=== PATIENT | male | born 1965 | race Caucasian/White ===

== ENCOUNTER → 2017-09-19 | Day surgery (SDC) | payer OTHER ==
[2017-09-06 13:08] VITALS: Ht 170.2 cm; Wt 73.6 kg
[~2017-09-19] VITALS: Ht 170.2 cm; Wt 73.6 kg
[~2017-09-19] MED LIST: CETI10TA84 PO; LIDOCAINE HCL 2% 2 ML VIAL (20MG/ML) ONE; PROPOFOL IV EMULSION 10 MG/ML 20 ML VIAL IV ONE; SODIUM CHLORIDE 0.9% 500ML 500 ML IV ONE; SUMA25TA PO
--- NOTE | 2017-09-19 14:27 | Endo History and Physical ---
History & Physical Date of Service: Sep 19, 2017. Chief Complaint: screeing Referring Physician: Dr. Bob JASSO History of Present Illness 52 yo CM who presents for screening colonoscopy. Past Surgical History Hx Cardiac Surgery: No Hx Internal Defibrillator: No Hx Pacemaker: No Hx Abdominal Surgery: No Hx of Implantable Prosthesis: No Hx Post-Op Nausea and Vomiting: No Hx Cancer Surgery: No Hx Thoracic Surgery: No Hx Orthopedic: Yes ("LASER LUMBAR SURGERY") Hx Urinary Tract Surgery: No Family History Esophogeal CA Social History Smoking Status: Never Smoker Hx Substance Use: No Hx Alcohol Use: Yes (OCCASIONALLY) Allergies Coded Allergies: Penicillins (Verified Allergy, Unknown, CONFIRMED BY ALLERGY TEST, 09/06/17 ) Current Medications Reported Home Medications Medications Dose Route/Sig Max Daily Dose Days Date Category Imitrex (Sumatriptan Succinate) 25 Mg Tab 25 Mg PO PRN PRN 09/06/17 Reported Zyrtec (Cetirizine HCl) 10 Mg Tab 10 Mg PO DAILY PRN 09/06/17 Reported Vital Signs Weight (Kilograms): 73.64 Height (Feet): 5 Height (Inches): 7 Date Time Temp Pulse Resp B/P (MAP) Pulse Ox O2 Delivery O2 Flow Rate FiO2 09/19/17 14:13 36.5 77 16 122/81 (95) 96 Room Air Physical Exam General Appearance: WD/WN, no apparent distress Respiratory/Chest: Auscultation: breath sounds normal Cardiovascular: Heart Auscultation: RRR Abdomen: Bowel Sounds: normal Inspection & Palpation: soft, non-distended, no tenderness, guarding & rebound Assessment and Plan Assessment: 52 yo CM who presents for screening colonoscopy. Plan: Proceed with colonoscopy.
--- NOTE | 2017-09-19 14:52 | Discharge Instructions ---
Endoscopy Patient Instructions Date / Procedure(s) Performed Sep 19, 2017. Colonoscopy Allergy Information Coded Allergies: Penicillins (Verified Allergy, Unknown, CONFIRMED BY ALLERGY TEST, 09/06/17 ) Discharge Date / Findings Sep 19, 2017. Colon polyp Internal hemorrhoids Medication Instructions OK to resume all medications today as prescribed Reported Home Medications Medications Dose Route/Sig Max Daily Dose Days Date Category Imitrex (Sumatriptan Succinate) 25 Mg Tab 25 Mg PO PRN PRN 09/06/17 Reported Zyrtec (Cetirizine HCl) 10 Mg Tab 10 Mg PO DAILY PRN 09/06/17 Reported Provider Instructions Activity Restrictions - No exercising or heavy lifting for 24 hours. - Do not drink alcohol the day of the procedure. - Do not drive a car or operate machinery until the day after the procedure. - Do not make any important decisions or sign important papers in 24 hours after the procedure. Following Day: - Return to full activity which may include returning to work/school. Diet Start your diet with liquids and light foods (jello, soup, juice, toast). Then eat your usual diet if not nauseated. Treatment For Common After Affects For mild abdominal pain, bloating, or excessive gas: - Rest - Eat lightly - Lie on right side Follow-Up Information Follow-up with Dr. Bob JASSO as scheduled Anesthesia Information What You Should Know You have had a procedure that required some medicine to reduce anxiety and discomfort. This treatment is called moderate sedation. After receiving the treatment, you may be sleepy, but you will be able to breathe on your own. The effects of the treatment may last for several hours. Follow these instructions along with Activity/Diet recommendations noted above: * Do NOT do anything where dizziness or clumsiness would be dangerous. * Rest quietly at home today, then you can be up and about tomorrow. * Have a responsible person stay with you the rest of today. * You may have had an I.V. today. If so, you may take the dressing off later today. Recommendations Call your doctor if: * Trouble breathing * Continuous vomiting for more than 24 hours * Temperature above 101 degrees * Severe abdominal pain or bloating * Pain not relieved by pain medicine ordered * There is increased drainage or redness from any incision * A large amount of rectal bleeding greater than 2-3 tablespoons. (If you had a polyp/s removed or have hemorrhoids, a small amount of blood - from the rectum is to be expected.) * You have any unanswered questions or concerns. IN THE EVENT OF A SERIOUS EMERGENCY, GO TO THE NEAREST EMERGENCY ROOM Your discharge instructions were prepared by provider Power Ramírez. Patient Instructions Signature Page Aj Austin Patient (or Guardian) Signature/Date: I have read and understand the instructions given to me by my caregivers. Caregiver/RN/Doctor Signature/Date: The above-named patient and/or guardian has received patient instructions on this date. + Original Patient Signature Page (only) stays with chart. Please make copy for patient.
--- NOTE | 2017-09-19 14:59 | GI REPORT ---
Procedure Date: 09/19/2017 2:12 PM Procedure: Colonoscopy Indications: Screening for colorectal malignant neoplasm Medicines: Monitored Anesthesia Care Complications: No immediate complications. Estimated Blood Loss: Estimated blood loss: none. Procedure: Pre-Anesthesia Assessment: - Prior to the procedure, a History and Physical was performed, and patient medications and allergies were reviewed. The patient's tolerance of previous anesthesia was also reviewed. The risks and benefits of the procedure and the sedation options and risks were discussed with the patient. All questions were answered, and informed consent was obtained. Prior Anticoagulants: The patient has taken no previous anticoagulant or antiplatelet agents. ASA Grade Assessment: II - A patient with mild systemic disease. After reviewing the risks and benefits, the patient was deemed in satisfactory condition to undergo the procedure. After I obtained informed consent, the scope was passed under direct vision. Throughout the procedure, the patient's blood pressure, pulse, and oxygen saturations were monitored continuously. The scope was introduced through the anus and advanced to the cecum, identified by appendiceal orifice and ileocecal valve. The colonoscopy was performed without difficulty. The patient tolerated the procedure well. The quality of the bowel preparation was good. The ileocecal valve, appendiceal orifice, and rectum were photographed. Findings: The perianal and digital rectal examinations were normal. A 5 mm polyp was found in the sigmoid colon. The polyp was sessile. The polyp was removed with a hot snare. Resection and retrieval were complete. Non-bleeding internal hemorrhoids were found during retroflexion. The hemorrhoids were small. Impression: - One 5 mm polyp in the sigmoid colon, removed with a hot snare. Resected and retrieved. - Non-bleeding internal hemorrhoids. Recommendation: - Resume previous diet. - Continue present medications. - Repeat colonoscopy for surveillance based on pathology results. - Return to primary care physician as previously scheduled. Power Ramírez, DO 09/19/2017 2:59:18 PM This report has been signed electronically. Note Initiated On: 09/19/2017 2:12 PM I attest to the content of the Intraoperative Record and orders documented therein, exceptions below
--- NOTE | 2017-09-19 15:02 | Anesthesiology Progress Note ---
Anesthesia Post Op Note Date & Time Sep 19, 2017 at 15:02 Vital Signs Pain Intensity: 3 Vital Signs Past 12 Hours Date Time Temp Pulse Resp B/P (MAP) Pulse Ox O2 Delivery O2 Flow Rate FiO2 09/19/17 14:55 80 16 133/87 (102) 96 Room Air 09/19/17 14:13 36.5 77 16 122/81 (95) 96 Room Air Notes Mental Status: alert / awake / arousable, participated in evaluation Pt Amnestic to Procedure: Yes Nausea / Vomiting: adequately controlled Pain: adequately controlled Airway Patency, RR, SpO2: stable & adequate BP & HR: stable & adequate Hydration State: stable & adequate Anesthetic Complications: no major complications apparent
[2017-09-19 15:23] VITALS: BP 129/76; PULSE 74; O2SAT 97
== END | disposition home or self-care (01) ==
LOC: C.GI 13:50
PROVIDERS: ATTEND Internal Medicine
DX: Z12.11 Encounter for screening for malignant neoplasm of colon (principal); K63.5 Polyp of colon; K64.8 Other hemorrhoids

== ENCOUNTER 2018-03-04 15:08 | Inpatient (IN) | payer OTHER ==
[~2018-03-04] VITALS: Ht 170.2 cm; Wt 75.6 kg
[~2018-03-04 15:08] MED LIST changes: -LIDOCAINE HCL 2% 2 ML VIAL (20MG/ML) ONE; -PROPOFOL IV EMULSION 10 MG/ML 20 ML VIAL IV ONE; -SODIUM CHLORIDE 0.9% 500ML 500 ML IV ONE
[2018-03-04] MEDS ORDERED: EpINEphrine INJ 1MG/ML AMP 1 MG/ML AMP ONE (15:34)
[2018-03-04] MEDS ORDERED: METHYLPREDNISOLONE 125 MG VIAL IV STA (15:39)
[2018-03-04] MEDS ORDERED: ONDANSETRON INJ 2 MG/ML 2 ML VIAL IV STA (15:39)
[2018-03-04] MEDS ORDERED: SODIUM CHLORIDE 0.9% 1000ML 1,000 ML IV STA (15:39)
[2018-03-04] MEDS ORDERED: RANITIDINE HCL 50 MG/100 ML D5W IV STA (15:39)
[2018-03-04] MEDS ORDERED: DiphenhydrAMINE HCL 50 MG/ML VIAL IV STA (15:39)
--- NOTE | 2018-03-04 15:50 | EMERGENCY ROOM VISIT NOTE ---
History Report prepared by Kym: Alli Fowler Under the Supervision of: Dr. Long Gutierrez M.D. First contact with patient: 15:28 Chief Complaint: ALLERGIC REACTION Stated Complaint: MIGRAINE, SWELLING FACE, HANDS, FEET History of Present Illness The patient is a 52 year old male who presents to the Emergency Room with complaints of a worsening allergic reaction starting this morning. The patient states that he woke up this morning with swelling to his face, hands, and feet. The patient additionally notes that he has had a left sided migraine since yesterday, and he got nauseous, dizzy, and light headed just recently. He additionally notes that he is a little bit short of breath. The patient states that he take Imitrex for his migraines, though he ran out yesterday, and he states that the pain is on the left side of his head, his migraines occasionally make him nauseous, and he notes that the light usually bothers him though not currently. The patient states that he has never used an Epi Pen before. He reports that he has been to an assistant to the ceo before. Source of History: patient Onset: this moring Position: other (generalized) Quality: other (allerigic reaction) Timing: worsening Associated Symptoms: + headache, + SOB, + nausea Note: Associated symptoms: Facial, hands, and feet swelling. Light headed and dizzy. Review of Systems See HPI for pertinent positives & negatives. A total of 10 systems reviewed and were otherwise negative. Past Medical & Surgical Medical Problems: (1) Anaphylactic reaction Surgical Problems: (1) History of lumbar surgery Social History Smoking Status: Never Smoker Alcohol Use: occasionally Marital Status: single Occupation Status: retired Current/Historical Medications Scheduled PRN Cetirizine (Zyrtec), 10 MG PO DAILY PRN for SWELLING Sumatriptan Succinate (Imitrex), 25 MG PO PRN PRN for Migraine Tramadol (Ultram), 50 MG PO Q8H PRN for Pain Allergies Coded Allergies: Penicillins (Verified Allergy, Unknown, CONFIRMED BY ALLERGY TEST, 03/04/18) Physical Exam Vital Signs Date Time Temp Pulse Resp B/P (MAP) Pulse Ox O2 Delivery O2 Flow Rate FiO2 03/04/18 18:07 79 16 93/67 95 Room Air 03/04/18 17:21 81 20 107/68 95 Room Air 03/04/18 16:29 76 5/7/18 16:00 122/71 03/04/18 15:53 75 18 03/04/18 15:42 97 Room Air 03/04/18 15:38 106/58 03/04/18 15:34 97 Room Air 03/04/18 15:34 97 Room Air 03/04/18 15:30 47 20 88/51 97 Room Air 03/04/18 15:27 46 64/45 97 Room Air 03/04/18 15:17 36.5 75 20 111/72 95 Room Air Physical Exam GENERAL: Patient is in no acute distress. HEENT: No acute trauma, normocephalic atraumatic, mucous membranes moist, no nasal congestion, no scleral icterus. Pupils are equal and reactive to light. No uvular edema. Upper lip edema noted. NECK: No stridor, no adenopathy, no meningismus, trachea is midline. LUNGS: Clear to auscultation bilaterally, no wheeze, no rhonchi, breath sounds equal. HEART: Without murmurs gallops or rubs, regular rate and rhythm. ABDOMEN: Soft, nontender, bowel sounds positive, no hernias, no peritonitis. EXTREMITIES: No cyanosis or edema, full range of motion of all the joints without pain or difficulty, no signs for acute trauma. NEUROLOGIC: Oriented x 3, no acute motor or sensory deficits, no focal weakness. SKIN: No rash, no jaundice, no diaphoresis. Medical Decision & Procedures ER Provider Diagnostic Interpretation: Radiology results as stated below per my review and radiologist interpretation: HEAD WITHOUT CONTRAST (CT) CT DOSE: 614.27 mGy.cm HISTORY: Headache. Mental status change. headache, vomiting, low blood pressure TECHNIQUE: Multiaxial CT images of the head were performed without the use of intravenous contrast. A dose lowering technique was utilized adhering to the principles of ALARA. Comparison: None. Findings: The paranasal sinuses and mastoid air cells are clear. The calvarium and skull base are intact. The ventricles and sulci are within normal limits. There is no mass, hematoma, midline shift, or acute infarct. Impression: No acute intracranial abnormality. The above report was generated using voice recognition software. It may contain grammatical, syntax or spelling errors. Electronically signed by: Sonny Santos M.D. 03/04/2018 4:21 PM Dictated Date/Time: 03/04/2018 4:20 PM CHEST ONE VIEW PORTABLE CLINICAL HISTORY: EVALUATE ALTERED MENTAL STATUS/WEAKNESS dyspnea COMPARISON STUDY: No previous studies for comparison. FINDINGS: The bones soft tissues and hemidiaphragms are normal. The cardiomediastinal silhouette is normal. The lungs are clear. The pulmonary vasculature is normal. IMPRESSION: Negative chest. The above report was generated using voice recognition software. It may contain grammatical, syntax or spelling errors. Electronically signed by: Sonny Santos M.D. 03/04/2018 4:33 PM Dictated Date/Time: 03/04/2018 4:32 PM Laboratory Results 03/04/18 15:39 Red Blood Count 5.25, Mean Corpuscular Volume 87.6, Mean Corpuscular Hemoglobin 30.7, Mean Corpuscular Hemoglobin Concent 35.0, Mean Platelet Volume 9.9, Neutrophils (%) (Auto) 69.2, Lymphocytes (%) (Auto) 23.0, Monocytes (%) (Auto) 6.3, Eosinophils (%) (Auto) 0.4, Basophils (%) (Auto) 0.1, Neutrophils # (Auto) 9.29, Lymphocytes # (Auto) 3.08, Monocytes # (Auto) 0.84, Eosinophils # (Auto) 0.06, Basophils # (Auto) 0.01 03/04/18 15:39 Test 03/04/18 15:39 White Blood Count 13.42 K/uL (4.8-10.8) Red Blood Count 5.25 M/uL (4.7-6.1) Hemoglobin 16.1 g/dL (14.0-18.0) Hematocrit 46.0 % (42-52) Mean Corpuscular Volume 87.6 fL (80-100) Mean Corpuscular Hemoglobin 30.7 pg (25-34) Mean Corpuscular Hemoglobin Concent 35.0 g/dl (32-36) Platelet Count 239 K/uL (130-400) Mean Platelet Volume 9.9 fL (7.4-10.4) Neutrophils (%) (Auto) 69.2 % Lymphocytes (%) (Auto) 23.0 % Monocytes (%) (Auto) 6.3 % Eosinophils (%) (Auto) 0.4 % Basophils (%) (Auto) 0.1 % Neutrophils # (Auto) 9.29 K/uL (1.4-6.5) Lymphocytes # (Auto) 3.08 K/uL (1.2-3.4) Monocytes # (Auto) 0.84 K/uL (0.11-0.59) Eosinophils # (Auto) 0.06 K/uL (0-0.5) Basophils # (Auto) 0.01 K/uL (0-0.2) RDW Standard Deviation 41.5 fL (36.4-46.3) RDW Coefficient of Variation 13.0 % (11.5-14.5) Immature Granulocyte % (Auto) 1.0 % Immature Granulocyte # (Auto) 0.14 K/uL (0.00-0.02) Prothrombin Time 10.1 SECONDS (9.0-12.0) Prothromb Time International Ratio 1.0 (0.9-1.1) Activated Partial Thromboplast Time 22.5 SECONDS (21.0-31.0) Partial Thromboplastin Ratio 0.9 Anion Gap 6.0 mmol/L (3-11) Est Creatinine Clear Calc Drug Dose 59.6 ml/min Estimated GFR () 69.6 Estimated GFR (Non- 60.1 BUN/Creatinine Ratio 12.8 (10-20) Calcium Level 8.1 mg/dl (8.5-10.1) Total Bilirubin 0.6 mg/dl (0.2-1) Aspartate Amino Transf (AST/SGOT) 18 U/L (15-37) Alanine Aminotransferase (ALT/SGPT) 33 U/L (12-78) Alkaline Phosphatase 76 U/L (45-117) Troponin I < 0.015 ng/ml (0-0.045) Total Protein 7.5 gm/dl (6.4-8.2) Albumin 3.5 gm/dl (3.4-5.0) Globulin 4.0 gm/dl (2.5-4.0) Albumin/Globulin Ratio 0.9 (0.9-2) Thyroid Stimulating Hormone (TSH) 2.000 uIu/ml (0.300-4.500) Laboratory results reviewed by me. Medications Administered Medications (Trade) Dose Ordered Sig/Viktoria Route Start Time Stop Time Status Last Admin Dose Admin Epinephrine HCl (EpINEphrine INJ 1MG/ML AMP/VIAL) 1 mg STK-MED ONCE .ROUTE 03/04/18 15:34 03/04/18 15:35 DC 03/04/18 15:35 0.3 MG Sodium Chloride 1,000 ml @ 999 mls/hr Q1H1M STAT IV 03/04/18 15:39 03/04/18 16:39 DC 03/04/18 15:56 999 MLS/HR Methylprednisolone Sodium Succinate (Solu-Medrol IV) 125 mg NOW STAT IV 03/04/18 15:39 03/04/18 15:43 DC 03/04/18 15:56 125 MG Diphenhydramine HCl (Benadryl Inj) 50 mg NOW STAT IV 03/04/18 15:39 03/04/18 15:43 DC 03/04/18 15:57 50 MG Ranitidine HCl (zANTac IV) 50 mg NOW STAT IV 03/04/18 15:39 03/04/18 15:43 DC 03/04/18 16:21 50 MG Ondansetron HCl (Zofran Inj) 4 mg NOW STAT IV 03/04/18 15:39 03/04/18 15:43 DC 03/04/18 15:57 4 MG Sumatriptan Succinate (Imitrex Tab) 25 mg 1801 ONCE PO 03/04/18 18:01 03/04/18 18:35 DC 03/04/18 18:51 25 MG ECG Per My Interpretation Indication: other (allergic reaction) Rate (beats per minute): 48 Rhythm: sinus bradycardia Findings: ST elevation (diffusely consistent with early repolarization), no ectopy, other (No PVC) ED Course 1528: The patient was evaluated in room C12. A complete history and physical exam was performed. 1534: Epinephrine 0.3mg IM 1539: Zofran 4mg IV, Zantac 50mg IV, Benadryl 50mg IV, Solu-Medrol 125mg IV, Sodium Chloride 1000 ml @ 999 mls/hr IV 1625: I reevaluated the patient, and his blood pressure is better, and he is feeling better. 1657: I reassessed the patient, and he is feeling well and doing better. I discussed the treatment plan with him, and he was agreeable. 1704: Discussed the patient's case with Dr. Arreguin [place] [facility] [place] The patient will be evaluated for further management. Medical Decision Differential Diagnoses include: allergic reaction, anaphylaxis, intracranial bleeding, migraine headache, vasovagal syncope, dehydration, electrolyte imbalance, anemia, and infection. There is a mild leukocytosis, this could be consistent with infection or just the stress of his situation. No concerning anemia. No significant electrolyte abnormality, kidney failure or hepatitis. The patient appears to be in a euthyroid state. Brain CT shows no acute bleed or mass-effect. Chest film does not show pneumonia or CHF. EKG shows a sinus bradycardia, no acute ischemia. Cardiac enzyme testing 1 is not consistent with acute cardiac injury. Of note, on exam, the patient did have upper lip edema, no uvular edema , no stridor, there was no rash and there was no wheezing. No signs of any respiratory distress. The patient presents with hypotension. Patient was aggressively managed. His pressure was in the 60s systolic for a short time. As I was concerned for anaphylaxis, the patient was given IM epinephrine. He received IV Solu-Medrol, IV saline, IV Zofran, IV Benadryl and IV Zantac. With this regimen, the patient 's blood pressure is improved, he seems to be much more comfortable. I do think a hospital stay is warranted. The cause for the hypotension is unclear, anaphylaxis is of course a concern. The patient has also been suffering from a migraine headache and admits to some nausea, the low blood pressure may have been vasovagal. I did speak with the patient and case management. The on-call hospitalist has been consulted. Medication Reconcilliation Current Medication List: was personally reviewed by hi Blood Pressure Screening Patient's blood pressure: Low blood pressure Monitored by the hospitalist. Consults Time Called: 1703 Consulting Physician: Dr. Rodríguez MORAN Hospitalist Returned Call: 1704 Discussed the patient's case with Dr. Rodríguez MORAN Hospitalist. The patient will be evaluated for further management. Impression Primary Impression: Hypotension Additional Impressions: Allergic reaction Headache Critical Care I have personally spent greater than 35 minutes of critical care time in the direct management of this patient. This includes bedside care, interpretation of diagnostic studies, and testing, discussion with consultants, patient, and family members, and other required patient management activities. This 35 minutes is in excess of all separately billable procedures. Scribe Attestation The scribe's documentation has been prepared under my direction and personally reviewed by me in its entirety. I confirm that the note above accurately reflects all work, treatment, procedures, and medical decision making performed by me. Departure Information Dispostion Being Evaluated By Hospitalist Referrals No Doctor, Assigned (PCP) Patient Instructions [facility] Problem Qualifiers
[2018-03-04 15:58] LABS: BASO % 0.1 %; BASO ABS # 0.01 K/uL (0-0.2); EOS % 0.4 %; EOS ABS # 0.06 K/uL (0-0.5); HEMOGLOBIN 16.1 g/dL (14.0-18.0); IG# 0.14 K/uL (0.00-0.02); LYMPH ABS # 3.08 K/uL (1.2-3.4); MEAN CELL VOLUME 87.6 fL (80-100); MEAN CORPUSCULAR HEMOGLOBIN 30.7 pg (25-34); MEAN PLATELET VOLUME 9.9 fL (7.4-10.4); MONO % 6.3 %; MONO ABS # 0.84 K/uL (0.11-0.59); NEUT % 69.2 %; NEUT ABS # 9.29 K/uL (1.4-6.5); PLATELET COUNT 239 K/uL (130-400); RED CELL DISTRIBUTION WIDTH SD 41.5 fL (36.4-46.3); WHITE BLOOD COUNT 13.42 K/uL (4.8-10.8)
[2018-03-04 16:20] LABS: ALBUMIN 3.5 gm/dl (3.4-5.0); ALT/SGPT 33 U/L (12-78); AST/SGOT 18 U/L (15-37); BLOOD UREA NITROGEN 17 mg/dl (7-18); CALCIUM 8.1 mg/dl (8.5-10.1); CARBON DIOXIDE 27 mmol/L (21-32); CREATININE 1.34 mg/dl (0.60-1.40); GLUCOSE 133 mg/dl (70-99); POTASSIUM 3.8 mmol/L (3.5-5.1); SODIUM 138 mmol/L (136-145)
--- NOTE | 2018-03-04 16:22 | DIAGNOSTIC IMAGING REPORT ---
HEAD WITHOUT CONTRAST (CT) CT DOSE: 614.27 mGy.cm HISTORY: Headache. Mental status change. headache, vomiting, low blood pressure TECHNIQUE: Multiaxial CT images of the head were performed without the use of intravenous contrast. A dose lowering technique was utilized adhering to the principles of ALARA. Comparison: None. Findings: The paranasal sinuses and mastoid air cells are clear. The calvarium and skull base are intact. The ventricles and sulci are within normal limits. There is no mass, hematoma, midline shift, or acute infarct. Impression: No acute intracranial abnormality. The above report was generated using voice recognition software. It may contain grammatical, syntax or spelling errors. Electronically signed by: Sonny Santos M.D. 03/04/2018 4:21 PM Dictated Date/Time: 03/04/2018 4:20 PM
[2018-03-04] MEDS ORDERED: TRAM-10 PO (16:27)
[2018-03-04 16:30] LABS: ALKALINE PHOSPHATASE 76 U/L (45-117); TOTAL PROTEIN 7.5 gm/dl (6.4-8.2)
--- NOTE | 2018-03-04 16:34 | DIAGNOSTIC IMAGING REPORT ---
CHEST ONE VIEW PORTABLE CLINICAL HISTORY: EVALUATE ALTERED MENTAL STATUS/WEAKNESS dyspnea COMPARISON STUDY: No previous studies for comparison. FINDINGS: The bones soft tissues and hemidiaphragms are normal. The cardiomediastinal silhouette is normal. The lungs are clear. The pulmonary vasculature is normal. IMPRESSION: Negative chest. The above report was generated using voice recognition software. It may contain grammatical, syntax or spelling errors. Electronically signed by: Sonny Santos M.D. 03/04/2018 4:33 PM Dictated Date/Time: 03/04/2018 4:32 PM
[2018-03-04] MEDS ORDERED: KETOROLAC TROMETHAMINE 30 MG/ML VIAL IV STA (18:01)
[2018-03-04] MEDS ORDERED: SUMATRIPTAN SUCCINATE 25 MG TAB PO ONE (18:01)
[2018-03-04] MEDS ORDERED: TRAMADOL HCL 50 MG TAB PO PRN (18:15)
[2018-03-04] MEDS ORDERED: CETIRIZINE HCL 10 MG TAB PO PRN (18:15)
[2018-03-04] MEDS ORDERED: ALUMINUM/MAGNESIUM/SIMETH (MAALOX MAX) 30 ML UDC PO PRN (18:15)
[2018-03-04] MEDS ORDERED: ONDANSETRON INJ 2 MG/ML 2 ML VIAL IV PRN (18:15)
[2018-03-04] MEDS ORDERED: ACETAMINOPHEN 325 MG TAB PO PRN (18:15)
[2018-03-04] MEDS ORDERED: MAGNESIUM HYDROXIDE SUSP 30 ML UDC PO PRN (18:15)
[2018-03-04] MEDS ORDERED: POLYETHYLENE (MIRALAX) 17 GM PACK PO PRN (18:15)
[2018-03-04] MEDS ORDERED: ALBUTEROL 0.083% NEBU SOLN 3 ML VIAL INH PRN (18:15)
[2018-03-04] MEDS ORDERED: SUMATRIPTAN SUCCINATE 25 MG TAB PO PRN (18:15)
--- NOTE | 2018-03-04 18:34 | History and Physical ---
History & Physical Date & Time of Service: March 04, 2018 at 18:19 Chief Complaint: Migraine, Swelling Face, Hands, Feet Primary Care Physician: No Doctor, Assigned History of Present Illness Source: patient Mr. Austin is a 52 y/o male with PMHx of Migraines and Anxiety who presents to the ED due to worsening allergic reaction starting this AM. Patient reports waking up this AM with swelling of the face, hands, and feet. He states he has had multiple episodes of this over the past few weeks but this has been the worse. He is seen at the [facility] and reports they are trying to figure this out. No known triggers at this time. He reports he saw an wood chopper in the past and was told he had a mold allergy but states he really didn't have much issue with it until about his 30s. He notices that his swelling usually is accompanied with a migraine but not always. He does report a migraine that started yesterday. He states he gets nauseous and lightheaded with them which he complains of today. He ran out of Imitrex and did not take this. Pain is L sided and reports associated photophobia but states this is mild. Currently experiencing diffuse pruritus but states this is improving. Feels that his swelling is improving as well since arrival. Migraine remains the same. He is in no respiratory distress and denies SOB/wheezing or sore/tight throat. He denies ACEI use. He does notice that these migraines and swelling appear to come on with days it rains but again can't confirm a known cause. When patient was brought back to the room in the ED he was noted to be hypotensive and placed in Trendelenburg and fluids administered. BP remains stable at this time. Past Medical/Surgical History Medical Problems: (1) Anaphylactic reaction Surgical Problems: (1) History of lumbar surgery Family History Patient reports no known family medical history. Social History Smoking Status: Never Smoker Smokeless Tobacco Use: No Alcohol Use: none Drug Use: none Marital Status: single Occupational Status: retired Allergies Coded Allergies: Penicillins (Verified Allergy, Unknown, CONFIRMED BY ALLERGY TEST, 03/04/18) Home Medications Scheduled PRN Cetirizine (Zyrtec), 10 MG PO DAILY PRN for SWELLING Sumatriptan Succinate (Imitrex), 25 MG PO PRN PRN for Migraine Tramadol (Ultram), 50 MG PO Q8H PRN for Pain Review of Systems Constitutional: No fever, No chills Eyes: + problem reported (photophobia), No worsening of vision, No diplopia ENT: No nasal symptoms, No sore throat, No trouble swallowing Respiratory: No cough, No wheezing, No shortness of breath Cardiovascular: No chest pain, No palpitations Abdomen: No pain, No nausea, No vomiting, No diarrhea, No constipation Musculoskeletal: + swelling (upper lip, hands b/l, and feet b/l), No calf pain Genitourinary - Male: No dysuria Neurologic: No numbness/tingling Hematologic / Lymphatic: No abnormal bleeding/bruising Integumentary: + itch, No rash Allergic / Immunologic: No hives Physical Exam Vital Signs Date Time Temp Pulse Resp B/P (MAP) Pulse Ox O2 Delivery O2 Flow Rate FiO2 03/04/18 18:07 79 16 93/67 95 Room Air 03/04/18 17:21 81 20 107/68 95 Room Air 03/04/18 16:29 76 03/04/18 16:00 122/71 03/04/18 15:53 75 18 03/04/18 15:42 97 Room Air 03/04/18 15:38 106/58 03/04/18 15:34 97 Room Air 03/04/18 15:34 97 Room Air 03/04/18 15:30 47 20 88/51 97 Room Air 03/04/18 15:27 46 64/45 97 Room Air 03/04/18 15:17 36.5 75 20 111/72 95 Room Air General Appearance: WD/WN, no apparent distress, + pertinent finding (mostly laying in bed with eyes closed but does intermittently open his eyes and answers appropriately) Head: normocephalic, atraumatic Eyes: sclerae normal ENT: hearing grossly normal, pharynx normal, + pertinent finding (no airway edema or stridor) Neck: supple, no JVD, trachea midline Respiratory/Chest: lungs clear, normal breath sounds, no respiratory distress, no accessory muscle use Cardiovascular: regular rate, rhythm, no gallop, no murmur Abdomen/GI: normal bowel sounds, non tender, soft Back: normal inspection Extremities/Musculoskelatal: no pedal edema Neurologic/Psych: alert, oriented x 3 Skin: normal color, warm/dry, no rash Diagnostics Laboratory Results Results Past 24 Hours Test 03/04/18 15:39 Range/Units White Blood Count 13.42 4.8-10.8 K/uL Red Blood Count 5.25 4.7-6.1 M/uL Hemoglobin 16.1 14.0-18.0 g/dL Hematocrit 46.0 42-52 % Mean Corpuscular Volume 87.6 80-100 fL Mean Corpuscular Hemoglobin 30.7 25-34 pg Mean Corpuscular Hemoglobin Concent 35.0 32-36 g/dl Platelet Count 239 130-400 K/uL Mean Platelet Volume 9.9 7.4-10.4 fL Neutrophils (%) (Auto) 69.2 % Lymphocytes (%) (Auto) 23.0 % Monocytes (%) (Auto) 6.3 % Eosinophils (%) (Auto) 0.4 % Basophils (%) (Auto) 0.1 % Neutrophils # (Auto) 9.29 1.4-6.5 K/uL Lymphocytes # (Auto) 3.08 1.2-3.4 K/uL Monocytes # (Auto) 0.84 0.11-0.59 K/uL Eosinophils # (Auto) 0.06 0-0.5 K/uL Basophils # (Auto) 0.01 0-0.2 K/uL RDW Standard Deviation 41.5 36.4-46.3 fL RDW Coefficient of Variation 13.0 11.5-14.5 % Immature Granulocyte % (Auto) 1.0 % Immature Granulocyte # (Auto) 0.14 0.00-0.02 K/uL Sodium Level 138 136-145 mmol/L Potassium Level 3.8 3.5-5.1 mmol/L Chloride Level 105 98-107 mmol/L Carbon Dioxide Level 27 21-32 mmol/L Anion Gap 6.0 3-11 mmol/L Blood Urea Nitrogen 17 7-18 mg/dl Creatinine 1.34 0.60-1.40 mg/dl Est Creatinine Clear Calc Drug Dose 59.6 ml/min Estimated GFR () 69.6 Estimated GFR (Non- 60.1 BUN/Creatinine Ratio 12.8 10-20 Random Glucose 133 70-99 mg/dl Calcium Level 8.1 8.5-10.1 mg/dl Total Bilirubin 0.6 0.2-1 mg/dl Aspartate Amino Transf (AST/SGOT) 18 15-37 U/L Alanine Aminotransferase (ALT/SGPT) 33 12-78 U/L Alkaline Phosphatase 76 45-117 U/L Troponin I < 0.015 0-0.045 ng/ml Total Protein 7.5 6.4-8.2 gm/dl Albumin 3.5 3.4-5.0 gm/dl Globulin 4.0 2.5-4.0 gm/dl Albumin/Globulin Ratio 0.9 0.9-2 Thyroid Stimulating Hormone (TSH) 2.000 0.300-4.500 uIu/ml Diagnostic Radiology CHEST ONE VIEW PORTABLE FINDINGS: The bones soft tissues and hemidiaphragms are normal. The cardiomediastinal silhouette is normal. The lungs are clear. The pulmonary vasculature is normal. IMPRESSION: Negative chest. HEAD WITHOUT CONTRAST (CT) Findings: The paranasal sinuses and mastoid air cells are clear. The calvarium and skull base are intact. The ventricles and sulci are within normal limits. There is no mass, hematoma, midline shift, or acute infarct. Impression: No acute intracranial abnormality. EKG Sinus bradycardia Otherwise normal ECG No previous ECGs available Confirmed by SAMRA BROWN ([id number]) on 03/04/2018 4:48:12 PM Impression Assessment and Plan Mr. Austin is a 52 y/o male with PMHx of Migraines and Anxiety who presents to the ED due to worsening allergic reaction starting this AM Anaphylactic Reaction/Angioedema from Unknown Source: - This has been an ongoing issue which worsened today. [facility] [place] Will [facility] last note - Currently no SOB or airway edema to suggest a compromised airway. Facial edema (upper lip) remains - Given Epinephrine, Zantac, Steroids, and Benadryl in ED - Continue Methylprednisolone 60 mg IV Q6H, Benadryl 25 mg IV Q8H, Pepcid 20 mg IV Q12H - Change home Zyrtec PRN to GLADIS Migraines: - Imitrex x 1 dose now and keep PRN - Zofran PRN Hypotension and Bradycardia: - Possible vasovagal response given migraine and swelling? Appears asymptomatic and improved with fluid resuscitation but will continue to monitor - Bradycardia on monitor which may be his baseline - will continue to monitor on telemetry DVT Prophylaxis: Lovenox Code Status: FULL RESUSCITATION Disposition: From home Resident Physician Supervision Note: I was present with Debbie DEL VALLE - during the history and exam. I discussed the case with the PA and agree with the findings and plan as documented in the note. Any exceptions or clarifications are listed here: 52 y/o M Hx migraines presents due to likely allergic reaction - woke up this AM with swelling of the face, hands, and feet. Pt was hypotensive on arrival to the ER and had received Epi when evaluated by med. Improvement was noted, however, top lip remained markedly swollen. OE AAO x 3 upper lip edema noted S1,2 R CTAB NT, ND No CCE P: Benadryl, Solumedrol, Famotidine at scheduled intervals provided - IVF and monitor airway. We have not identified a Source as he does not report any known allergies. Documented By: Darren Arreguin Resuscitation Status VTE Prophylaxis Will order VTE Prophylaxis: Yes
[2018-03-04 19:00] VITALS: BP 90/54; TEMP 36.5; O2SAT 92; Ht 170.2 cm; Wt 75.6 kg
[2018-03-04 19:13] VITALS: BP 90/54; PULSE 66; TEMP 36.5; O2SAT 92
[2018-03-04 19:24] LABS: PTT PATIENT 22.5 SECONDS (21.0-31.0)
[2018-03-04] MEDS: SODIUM CHLORIDE 0.9% 1000ML 1,000 ML IV SCH (20:34)
[2018-03-04] MEDS ORDERED: ENOXAPARIN 40 MG/0.4 ML SYR SC SCH (21:00)
[2018-03-04] MEDS: METHYLPREDNISOLONE IV 60 MG in SYRINGE 0 ML IV SCH (21:37)
[2018-03-04 21:45] VITALS: BP 112/75; PULSE 75; TEMP 37; O2SAT 96
[2018-03-04] MEDS: DiphenhydrAMINE HCL 50 MG/ML VIAL IV SCH (23:18)
[2018-03-04 23:33] VITALS: BP 115/70; PULSE 62; TEMP 36.9; O2SAT 94
[2018-03-04 23:59] VITALS: O2SAT 94
[2018-03-05 04:00] VITALS: O2SAT 94
[2018-03-05] MEDS ORDERED: FAMOTIDINE IV INJ 20 MG in DEXTROSE 5% 100ML 100 ML IV SCH (04:00)
[2018-03-05] MEDS ORDERED: FAMOTIDINE IV INJ 20 MG in SYRINGE 3 ML IV SCH (04:00)
[2018-03-05] MEDS: METHYLPREDNISOLONE IV 60 MG in SYRINGE 0 ML IV SCH ×2 (04:08→09:54)
[2018-03-05 04:26] VITALS: BP 103/68; PULSE 69; TEMP 36.7; O2SAT 91
[2018-03-05] MEDS: SODIUM CHLORIDE 0.9% 1000ML 1,000 ML IV SCH ×2 (06:09→14:01)
[2018-03-05 06:44] VITALS: BP 116/71; PULSE 76; TEMP 36.2; O2SAT 92
[2018-03-05] MEDS: DiphenhydrAMINE HCL 50 MG/ML VIAL IV SCH (07:26)
--- NOTE | 2018-03-05 08:32 | Hospitalist Progress Note ---
Hospitalist Progress Note Date of Service March 05, 2018. Objective Vital Signs Date Time Temp Pulse Resp B/P (MAP) Pulse Ox O2 Delivery O2 Flow Rate FiO2 03/05/18 08:00 Room Air 03/05/18 06:44 36.2 76 16 116/71 (86) 92 Room Air 03/05/18 04:26 36.7 69 16 103/68 (80) 91 Room Air 03/05/18 04:00 94 Room Air 03/04/18 23:59 94 Room Air 03/04/18 23:33 36.9 62 17 115/70 (85) 94 Room Air 03/04/18 21:45 37.0 75 22 112/75 (87) 96 Room Air 03/04/18 19:13 36.5 66 20 90/54 (66) 92 Room Air 03/04/18 19:00 36.5 20 90/54 92 Room Air 03/04/18 18:57 102/65 03/04/18 18:41 75 16 91/60 95 Room Air 03/04/18 18:07 79 16 93/67 95 Room Air 03/04/18 17:21 81 20 107/68 95 Room Air 03/04/18 16:29 76 03/04/18 16:00 122/71 03/04/18 15:53 75 18 03/04/18 15:42 97 Room Air 03/04/18 15:38 106/58 03/04/18 15:34 97 Room Air 03/04/18 15:34 97 Room Air 03/04/18 15:30 47 20 88/51 97 Room Air 03/04/18 15:27 46 64/45 97 Room Air 03/04/18 15:17 36.5 75 20 111/72 95 Room Air Laboratory Results Last 24 Hours Test 03/04/18 15:39 White Blood Count 13.42 K/uL Red Blood Count 5.25 M/uL Hemoglobin 16.1 g/dL Hematocrit 46.0 % Mean Corpuscular Volume 87.6 fL Mean Corpuscular Hemoglobin 30.7 pg Mean Corpuscular Hemoglobin Concent 35.0 g/dl Platelet Count 239 K/uL Mean Platelet Volume 9.9 fL Neutrophils (%) (Auto) 69.2 % Lymphocytes (%) (Auto) 23.0 % Monocytes (%) (Auto) 6.3 % Eosinophils (%) (Auto) 0.4 % Basophils (%) (Auto) 0.1 % Neutrophils # (Auto) 9.29 K/uL Lymphocytes # (Auto) 3.08 K/uL Monocytes # (Auto) 0.84 K/uL Eosinophils # (Auto) 0.06 K/uL Basophils # (Auto) 0.01 K/uL RDW Standard Deviation 41.5 fL RDW Coefficient of Variation 13.0 % Immature Granulocyte % (Auto) 1.0 % Immature Granulocyte # (Auto) 0.14 K/uL Prothrombin Time 10.1 SECONDS Prothromb Time International Ratio 1.0 Activated Partial Thromboplast Time 22.5 SECONDS Partial Thromboplastin Ratio 0.9 Sodium Level 138 mmol/L Potassium Level 3.8 mmol/L Chloride Level 105 mmol/L Carbon Dioxide Level 27 mmol/L Anion Gap 6.0 mmol/L Blood Urea Nitrogen 17 mg/dl Creatinine 1.34 mg/dl Est Creatinine Clear Calc Drug Dose 59.6 ml/min Estimated GFR () 69.6 Estimated GFR (Non- 60.1 BUN/Creatinine Ratio 12.8 Random Glucose 133 mg/dl Calcium Level 8.1 mg/dl Total Bilirubin 0.6 mg/dl Aspartate Amino Transf (AST/SGOT) 18 U/L Alanine Aminotransferase (ALT/SGPT) 33 U/L Alkaline Phosphatase 76 U/L Troponin I < 0.015 ng/ml Total Protein 7.5 gm/dl Albumin 3.5 gm/dl Globulin 4.0 gm/dl Albumin/Globulin Ratio 0.9 Thyroid Stimulating Hormone (TSH) 2.000 uIu/ml Hepatitis C Antibody Screen NEG Assessment and Plan Mr. Austin is a 52 y/o male with PMHx of Migraines and Anxiety who presents to the ED due to worsening allergic reaction starting this AM Anaphylactic Reaction/Angioedema from Unknown Source: - This has been an ongoing issue which worsened today. Being worked up at [facility] in [place]. Will request last note from their facility - Currently no SOB or airway edema to suggest a compromised airway. Facial edema (upper lip) remains - Given Epinephrine, Zantac, Steroids, and Benadryl in ED - Continue Methylprednisolone 60 mg IV Q6H, Benadryl 25 mg IV Q8H, Pepcid 20 mg IV Q12H - Change home Zyrtec PRN to GLADIS Migraines: - Imitrex x 1 dose now and keep PRN - Zofran PRN Hypotension and Bradycardia: - Possible vasovagal response given migraine and swelling? Appears asymptomatic and improved with fluid resuscitation but will continue to monitor - Bradycardia on monitor which may be his baseline - will continue to monitor on telemetry DVT Prophylaxis: Lovenox Code Status: FULL RESUSCITATION Disposition: From home
[2018-03-05] MEDS ORDERED: CETIRIZINE HCL 10 MG TAB PO SCH (09:00)
[2018-03-05 10:59] VITALS: BP 115/64; PULSE 87; TEMP 36.3; O2SAT 92
[2018-03-05] MEDS ORDERED: FAMO40TA6 PO (13:49)
[2018-03-05] MEDS ORDERED: DIPH25TA33 PO (13:49)
[2018-03-05] MEDS ORDERED: PRED10TA PO (13:49)
[2018-03-05] MEDS ORDERED: CETI10TA84 PO (13:49)
--- NOTE | 2018-03-05 13:58 | Discharge Instructions ---
Discharge Instructions Date of Service March 05, 2018. Admission Reason for Admission: Anaphylactic Reaction Discharge Discharge Diagnosis / Problem: Angioedema, Urticaria Discharge Goals Goal(s): Decrease discomfort, Improve function, Increase independence, Improve disease control Activity Recommendations Activity Limitations: per Instructions/Follow-up section Lifting Limitations: no more than 25 pounds, gradually increase as tolerated Exercise/Sports Limitations: rest today, gradually increase as tolerated May Resume Sexual Activity: when tolerated Shower/Bathe: no limitations Driving or Machine Use: no limitations . Instructions / Follow-Up Instructions / Follow-Up You were admitted to [facility] with angioedema and frontal headache and low blood pressure and diagnosed with idiopathic angioedema and anaphylaxis with urticaria. It is unknown what caused the source of anaphylaxis, however may be due to imitrex and tramadol so these medications have been stopped. During your stay here you were treated with medications to reduce swelling, IV fluids, and transitioned to oral medications to help prevent this from occurring in the future. You should be referred by your PCP at the [facility] to see an associate director financial aid within the next 1-2 months. Imaging studies which were completed include CT of the head, and were normal. Medications: STOP imitrex and tramadol. Continue taking pepcid, benadryl as newly prescribed. Continue taking zyrtec daily on a regular basis and you can increase this to twice a day if you need to. Continue prednisone taper as follows: Take 60mg (6 tabs) x 2 days, 50mg (5 tabs) x 2d 40mg (4 tabs) x 2d 30 mg x 2d 20mg x 2d 10mg x 2d. Finish on 03/17. You were also prescribed an Epi Pen to use in case of emergency and severe facial or tongue/throat swelling, or for shortness of breath associated with your allergic reaction. Appointments: Follow up with PCP at the [facility] within 1-2 weeks. Follow up with associate director financial aid/allergy clinic within 1 month. Current Hospital Diet Patient's current hospital diet: Regular Diet Discharge Diet Recommended Diet: Regular Diet Pending Studies Studies pending at discharge: no Medical Emergencies . Who to Call and When: Medical Emergencies: If at any time you feel your situation is an emergency, please call 911 immediately. . Non-Emergent Contact Non-Emergency issues call your: Primary Care Provider Call Non-Emergent contact if: you have a fever, temperature is above 100.5, your pain is not controlled, your pain is worsening, your pain is unusual for you, your pain is concerning you, you have any medication questions other concerns with your health. Call 911 or go directly to the Emergency Department if you experience any of the following: Chest pain, chest tightness, shortness of breath, abdominal pain , lightheadedness, dizziness, gastrointestinal bleeding, or have any other concerns regarding your health. . Past History Medical & Surgical History: (1) Angioedema (2) Anaphylactic reaction (3) Hypotension . "Provider Documentation" section prepared by Judit Saeed. . [place] Drug Monitoring Program Search Results: no issues identified
--- NOTE | 2018-03-05 14:01 | Discharge Summary ---
Discharge Summary Date of Service March 05, 2018. Discharge Summary Admission Date: March 04, 2018 at 18:15 Discharge Date: March 05, 2018 Discharge Disposition: Home Principal Diagnosis: idiopathic angioedema, anaphylaxis Problems/Secondary Diagnoses: Medical Problems: (1) Anaphylactic reaction (2) Angioedema Migraine headaches Surgical Problems: (1) History of lumbar surgery Procedures: HEAD WITHOUT CONTRAST (CT) 03/04/18 Findings: The paranasal sinuses and mastoid air cells are clear. The calvarium and skull base are intact. The ventricles and sulci are within normal limits. There is no mass, hematoma, midline shift, or acute infarct. Impression: No acute intracranial abnormality. CHEST ONE VIEW PORTABLE 03/04/18 FINDINGS: The bones soft tissues and hemidiaphragms are normal. The cardiomediastinal silhouette is normal. The lungs are clear. The pulmonary vasculature is normal. IMPRESSION: Negative chest. Consultations: None Medication Reconciliation New Medications: Epinephrine (Epipen 2-Hector) 0.3 Mg Inj 0.3 MG IM DAILY PRN for Allergic Reaction MDD 1, #1 BOX AND CALL 911 IMMEDIATELY AFTERWARDS Famotidine (Pepcid) 40 Mg Tab 1 TAB PO DAILY for 30 Days, #30 TAB 0 Refills Prednisone Tab (Prednisone) 10 Mg Tab 10 MG PO UD for 12 Days, #42 TAB Take 60mg x 2d, 50mg x 2d, 40mg x 2d, 30 mg x 2d, 20mg x 2d, and 10mg x 2d. Finish on 03/17. Diphenhydramine Hcl (Diphenhydramine Hcl) 25 Mg Tab 25 MG PO Q6H for 7 Days, #28 TAB Continued Medications: Cetirizine (Zyrtec) 10 Mg Tab 10 MG PO DAILY for 30 Days, #30 TAB (This prescription has been renewed) Discontinued Medications: Sumatriptan Succinate (Imitrex) 25 Mg Tab 25 MG PO PRN PRN for Migraine, TAB Tramadol (Ultram) 50 Mg Tab 50 MG PO Q8H PRN for Pain, TAB Discharge Exam The patient was seen and examined this morning. Pt reports doing much better today. He reports swelling has significantly reduced, but that he has a frontal headache. Angioedema has occurred intermittently x 10 years per his report, about 1x per week at baseline. He has previously used imitrex from this in the past and notes using it for about 5 years. He has also been using tramadol x 8 years or so for chronic pain [facility] He denies any issues with swallowing, flushing, difficulty breathing, neck swelling. At this point his sx have greatly resolved. Review of Systems: Constitutional: No fever, No chills, No sweats Eyes: No redness, No diplopia ENT: No hearing loss, No unusual epistaxis, No nasal symptoms, No sore throat, No tinnitus, No trouble swallowing Respiratory: No cough, No shortness of breath Cardiovascular: No chest pain, No edema, No palpitations Abdomen: No pain, No nausea, No vomiting, No diarrhea Genitourinary - Male: No dysuria Neurologic: No weakness, No numbness/tingling Endocrine: No fatigue, No problem reported Integumentary: No rash, No itch, No new/changing skin lesions Physical Exam: General Appearance: WD/WN, no apparent distress Eyes: PERRL, EOMI ENT: hearing grossly normal, pharynx normal, + pertinent finding (MMM, no edema of posterior pharynx) Neck: supple, no adenopathy, thyroid normal, no JVD Respiratory/Chest: lungs clear, no respiratory distress, no accessory muscle use, + pertinent finding (on RA) Cardiovascular: regular rate, rhythm (slightly tachy w/ HR in 90s- low 100s) , no JVD, no murmur Abdomen / GI: normal bowel sounds, non tender, soft Extremities: no calf tenderness, no pedal edema, normal range of motion Neurologic/Psychiatric: alert, oriented x 3, + pertinent finding (anxious affect) Skin: normal color, warm/dry Hospital Course Mr. Austin is a 52 y/o male with PMHx of Migraines and Anxiety who presents to the ED due to worsening allergic reaction starting this AM Anaphylactic Reaction/Angioedema from Unknown Source: - This has been an ongoing issue which worsened prompting admission. Followed at the [facility] in [place]. Has not seen an continuity reader in many years - Currently no SOB or airway edema to suggest a compromised airway. Angioedema much improved on the day of discharge - Given Epinephrine on admission for hypotension, also treated with IV Pepcid, IV Solu-Medrol, and IV Benadryl - transitioned to oral pepcid, benadryl, zyrtec and prednisone taper upon discharge. (Changed home Zyrtec PRN to [facility]) -Also provided EpiPen prescription - Follow up with allergy/continuity reader within 1 month as outpatient with the [facility]. - Pt recent urgent care clinic reviewed from Dr. Tracy DO. per Fax from the [facility] and pt has also been referred to see ENT as an outpatient for 11/05 lesion in nasopharynx. - STOP imitrex and tramadol and these medications may be causing/worsening anaphylaxis/angioedema and causing rebound headaches. Migraines: - Imitrex x 1 dose in the ER - HOLD during admission. Do not resume upon discharge in case could be contributing to recurrent anaphylaxis given his frequent use of it. - Zofran PRN Hypotension and Bradycardia: Hypotension related to anaphylaxis improved with epinephrine and IV fluid bolus. - bradycardia x 1time overnight with HR in high 30s but only lasted 1 minute on telemetry not concerning. HR in 90s upon discharge. DVT Prophylaxis: Lovenox while admitted Code Status: FULL RESUSCITATION Disposition: From home. discharge to home today Follow up with PCP within 1 week Total Time Spent: Greater than 30 minutes This includes examination of the patient, discharge planning, medication reconciliation, and communication with other providers. Discharge Instructions Please refer to the electronic Patient Visit Report (Discharge Instructions) for additional information. Follow-Up Follow up with your Primary Care Provider within 1 week. Follow up with continuity reader/allergy clinic within 1-2 months. Additional Copies To [facility] Reviewed: Pt Seen/Exam by Me History Physician Song Plugger supervision Note: I interviewed and examined the patient. Discussed with ELIGIO Saeed and agree with findings and plan as documented in the note. Any exceptions or clarifications are listed here: Patient feeling much improved. Reports the swelling in his face lips and tongue is dramatically improved. He has no trouble swallowing. Denies chest pain or shortness of breath. No cough. He reports he gets hives and swelling in his feet and hands with facial/lip/tongue swelling at least once per week. It usually goes away within 2 days of taking Zyrtec daily. He only got concerned when the swelling got really bad this time which is why he presented to the ER. His headaches may have been related to hypotension occurring with anaphylaxis. His headache is resolved. He also takes Imitrex about 3 or 4 times a month for what sounds like classic migraine without aura. He has not seen an continuity reader in many many years. Vitals and telemetry reviewed Gen: AAOx3, NAD HEENT: anicteric sclerae, EOMI, very mild upper lip edema, very mild residual left cheek edema, otherwise airway is widely patent, no tongue swelling CV: RRR no mgr nl S1S2 Pulm: CTAB no wcr Abd: +BS soft NT ND no masses or hernias Ext: no edema, 2+ DP pulses Skin: no rashes, warm/dry Neuro: full strength throughout Patient is a 52-year-old male with a history of migraine headaches and what sounds like idiopathic urticaria and angioedema, here with angioedema, urticaria , and anaphylaxis. All resolved now and stable for discharge to home on medications as above. -Strongly recommend referral [facility] future -Recommend EpiPen to carry around with him -Advised to hold off on taking Imitrex and tramadol in case contributing to recurrent symptoms Documented By: Liz Olguin
[2018-03-05] MEDS ORDERED: EPP3/2 IM (14:16)
[2018-03-05 14:29] VITALS: BP 115/64; PULSE 87; TEMP 36.3; O2SAT 92
== END 2018-03-05 14:44 | disposition home or self-care (01) | DRG 916 ==
LOC: C.EDB 15:10 → C.2T 18:15 → ENRESERV 18:25
PROVIDERS: ADMIT Internal Medicine; ATTEND Internal Medicine
DX: T78.3XXA Angioneurotic edema, initial encounter (principal); G43.909 Migraine, unspecified, not intractable, without status migrainosus; Z88.0 Allergy status to penicillin; I95.9 Hypotension, unspecified; R00.1 Bradycardia, unspecified; Y92.009 Unspecified place in unspecified non-institutional (private) residence as the place of occurrence of the external cause

== ENCOUNTER 2018-06-18 16:11 | Emergency (ER) | payer OTHER ==
[~2018-06-18] VITALS: Ht 170.2 cm; Wt 77.8 kg
[~2018-06-18 16:11] MED LIST changes: +DIPH25TA33 PO; +EPP3/2 IM; +FAMO40TA6 PO; -SUMA25TA PO
[2018-06-18 16:18] VITALS: TEMP 36.7; Ht 170.2 cm; Wt 77.8 kg
[2018-06-18] MEDS ORDERED: SODIUM CHLORIDE 0.9% 1000ML 1,000 ML IV STA (16:31)
[2018-06-18] MEDS ORDERED: FAMOTIDINE 20MG/5ML IV PUSH IV STA (16:31)
[2018-06-18] MEDS ORDERED: DiphenhydrAMINE HCL 50 MG/ML VIAL IV STA (16:31)
[2018-06-18] MEDS ORDERED: METHYLPREDNISOLONE 125 MG VIAL IV STA (16:31)
[2018-06-18 16:35] VITALS: O2SAT 100
[2018-06-18 16:41] LABS: BASO % 0.2 %; BASO ABS # 0.02 K/uL (0-0.2); EOS % 0.9 %; HEMOGLOBIN 16.3 g/dL (14.0-18.0); IG# 0.05 K/uL (0.00-0.02); LYMPH % 28.2 %; LYMPH ABS # 3.01 K/uL (1.2-3.4); MEAN CELL VOLUME 88.1 fL (80-100); MEAN CORPUSCULAR HEMOGLOBIN 31.2 pg (25-34); MEAN CORPUSCULAR HGB CONC 35.4 g/dl (32-36); MEAN PLATELET VOLUME 10.4 fL (7.4-10.4); MONO % 4.7 %; NEUT % 65.5 %; NEUT ABS # 6.98 K/uL (1.4-6.5); PLATELET COUNT 231 K/uL (130-400); RED CELL DISTRIBUTION WIDTH CV 12.6 % (11.5-14.5); RED CELL DISTRIBUTION WIDTH SD 40.1 fL (36.4-46.3); WHITE BLOOD COUNT 10.66 K/uL (4.8-10.8)
--- NOTE | 2018-06-18 16:50 | DIAGNOSTIC IMAGING REPORT ---
SINGLE VIEW CHEST CLINICAL HISTORY: Allergic reaction. FINDINGS: An AP, portable, upright chest radiograph is compared to study dated 03/04/2018. The examination is degraded by portable technique and patient rotation. The cardiomediastinal silhouette is unremarkable. There is mild bibasilar atelectasis. The lungs and pleural spaces are otherwise clear. No pneumothorax is seen. The bony thorax is grossly intact. IMPRESSION: No acute cardiopulmonary abnormality. Electronically signed by: Long Ac M.D. 06/18/2018 4:49 PM Dictated Date/Time: 06/18/2018 4:48 PM
[2018-06-18 17:11] LABS: CALCIUM 8.6 mg/dl (8.5-10.1); CREATININE 1.01 mg/dl (0.60-1.40)
[2018-06-18] MEDS ORDERED: CETI10TA10 PO (17:18)
[2018-06-18] MEDS ORDERED: EPP3/2 IM (17:18)
[2018-06-18] MEDS ORDERED: SUMA25TA12 PO (17:23)
[2018-06-18] MEDS ORDERED: SIMV40TA2 PO (17:23)
[2018-06-18] MEDS ORDERED: PRLSR20 PO (17:23)
[2018-06-18] MEDS ORDERED: FAMO20TA11 PO (17:52)
[2018-06-18] MEDS ORDERED: PRED20TA PO (17:52)
[2018-06-18] MEDS ORDERED: DIPH1TAB87 PO (17:52)
--- NOTE | 2018-06-18 17:56 | EMERGENCY ROOM VISIT NOTE ---
History Report prepared by Kym: Scarlett Cordova Under the Supervision of: Dr. Jamir Kay M.D. First contact with patient: 16:23 Chief Complaint: SWELLING TO EXTREMITY Stated Complaint: HAND, FEET, AND EYE SWELL History of Present Illness The patient is a 53 year old male who presents to the Emergency Room with complaints of worsening swelling in his legs, arms, and the right side of his face that began this morning. The patient states that he has a hive on each arm. The patient states that his hives are not painful, just itchy. He denies any shortness of breath, itchiness or swelling in his throat, or fevers or chills. The patient states that he had a headache yesterday, but did not have one today. The patient states that he usually gets hives and rashes when it rains. He states that he ate normally today. The patient states that he was here in February, three months ago, for swelling in his face and he became hypotensive. He was given an EpiPen after this visit. The patient states that he is allergic to penicillin. Source of History: patient Onset: this morning Position: arm (bilateral), leg (bilateral), other (right side of face) Quality: other (swelling) Timing: worsening Modifying Factors (Worsening): other (rain) Associated Symptoms: No fevers, No chills, No headache, No SOB Note: additional symptoms: hives, itchiness Review of Systems See HPI for pertinent positives and negatives. A total of ten systems were reviewed and were otherwise negative. Past Medical & Surgical Medical Problems: (1) Anaphylactic reaction (2) Angioedema Surgical Problems: (1) History of lumbar surgery Family History Patient reports no known family medical history. Social History Smoking Status: Never Smoker Alcohol Use: occasionally Drug Use: none Marital Status: single Occupation Status: retired Current/Historical Medications Scheduled Cetirizine Hcl (Zyrtec), 10 MG PO DAILY Diphenhydramine Hcl (Benadryl Allergy), 1 TAB PO QID Famotidine (Pepcid), 20 MG PO BID Omeprazole (Prilosec), 20 MG PO DAILY Prednisone (Prednisone), 2 TAB PO DAILY Simvastatin (Zocor), 1 TAB PO QPM Sumatriptan Succinate (Imitrex), 1 TAB PO UD Scheduled PRN Epinephrine (Epipen), 0.3 MG IM UD PRN for Allergic Reaction Allergies Coded Allergies: Penicillins (Verified Allergy, Unknown, CONFIRMED BY ALLERGY TEST, 03/04/18) Physical Exam Vital Signs Date Time Temp Pulse Resp B/P (MAP) Pulse Ox O2 Delivery O2 Flow Rate FiO2 06/18/18 18:43 70 20 114/71 98 06/18/18 17:42 87 16 126/73 98 Room Air 06/18/18 16:55 74 06/18/18 16:35 100 Room Air 06/18/18 16:18 36.7 98 20 133/84 98 Room Air Physical Exam GENERAL: Awake, alert, well-appearing, in no distress HENT: Normocephalic, atraumatic. Oropharynx unremarkable. Oral lesions or swelling appreciated. No facial swelling or asymmetry appreciated. EYES: Normal conjunctiva. Sclera non-icteric. NECK: Supple. No nuchal rigidity. RESPIRATORY: Clear to auscultation. No wheezes. Normal respiratory effort. CARDIAC: Normal rate. Normal rhythm. Extremities warm and well perfused. GI: Soft, non-distended. No tenderness to palpation. No rebound or guarding. RECTAL: Deferred. MUSCULOSKELETAL: Atraumatic. Chest examination reveals no tenderness. LOWER EXTREMITIES: Calves are equal size bilaterally and non-tender. No edema NEURO: Normal sensorium. No sensory or motor deficits noted. No facial droop. SKIN: Warm and dry. No jaundice noted. 2 cm erythematous papule on the right upper and left upper arm. Some swelling to the right middle finer with mild erythema. Pruritic and non-tender. Medical Decision & Procedures ER Provider Diagnostic Interpretation: Radiology results as stated below per my review and radiologist interpretation: SINGLE VIEW CHEST CLINICAL HISTORY: Allergic reaction. FINDINGS: An AP, portable, upright chest radiograph is compared to study dated 03/04/2018. The examination is degraded by portable technique and patient rotation. The cardiomediastinal silhouette is unremarkable. There is mild bibasilar atelectasis. The lungs and pleural spaces are otherwise clear. No pneumothorax is seen. The bony thorax is grossly intact. IMPRESSION: No acute cardiopulmonary abnormality. Electronically signed by: Long Ac M.D. 06/18/2018 4:49 PM Dictated Date/Time: 06/18/2018 4:48 PM Laboratory Results 06/18/18 16:30 Red Blood Count 5.22, Mean Corpuscular Volume 88.1, Mean Corpuscular Hemoglobin 31.2, Mean Corpuscular Hemoglobin Concent 35.4, Mean Platelet Volume 10.4, Neutrophils (%) (Auto) 65.5, Lymphocytes (%) (Auto) 28.2, Monocytes (%) (Auto) 4.7, Eosinophils (%) (Auto) 0.9, Basophils (%) (Auto) 0.2, Neutrophils # (Auto) 6.98, Lymphocytes # (Auto) 3.01, Monocytes # (Auto) 0.50, Eosinophils # (Auto) 0.10, Basophils # (Auto) 0.02 06/18/18 16:30 Test 06/18/18 16:30 White Blood Count 10.66 K/uL (4.8-10.8) Red Blood Count 5.22 M/uL (4.7-6.1) Hemoglobin 16.3 g/dL (14.0-18.0) Hematocrit 46.0 % (42-52) Mean Corpuscular Volume 88.1 fL (80-100) Mean Corpuscular Hemoglobin 31.2 pg (25-34) Mean Corpuscular Hemoglobin Concent 35.4 g/dl (32-36) Platelet Count 231 K/uL (130-400) Mean Platelet Volume 10.4 fL (7.4-10.4) Neutrophils (%) (Auto) 65.5 % Lymphocytes (%) (Auto) 28.2 % Monocytes (%) (Auto) 4.7 % Eosinophils (%) (Auto) 0.9 % Basophils (%) (Auto) 0.2 % Neutrophils # (Auto) 6.98 K/uL (1.4-6.5) Lymphocytes # (Auto) 3.01 K/uL (1.2-3.4) Monocytes # (Auto) 0.50 K/uL (0.11-0.59) Eosinophils # (Auto) 0.10 K/uL (0-0.5) Basophils # (Auto) 0.02 K/uL (0-0.2) RDW Standard Deviation 40.1 fL (36.4-46.3) RDW Coefficient of Variation 12.6 % (11.5-14.5) Immature Granulocyte % (Auto) 0.5 % Immature Granulocyte # (Auto) 0.05 K/uL (0.00-0.02) Anion Gap 7.0 mmol/L (3-11) Est Creatinine Clear Calc Drug Dose 78.2 ml/min Estimated GFR () 97.3 Estimated GFR (Non- 83.9 BUN/Creatinine Ratio 15.1 (10-20) Calcium Level 8.6 mg/dl (8.5-10.1) Laboratory results reviewed by me Medications Administered Medications (Trade) Dose Ordered Sig/Viktoria Route Start Time Stop Time Status Last Admin Dose Admin Sodium Chloride 1,000 ml @ 999 mls/hr Q1H1M STAT IV 06/18/18 16:31 06/18/18 17:31 DC 06/18/18 16:40 999 MLS/HR Methylprednisolone Sodium Succinate (Solu-Medrol IV) 125 mg NOW STAT IV 06/18/18 16:31 06/18/18 16:35 DC 06/18/18 16:40 125 MG Diphenhydramine HCl (Benadryl Inj) 50 mg NOW STAT IV 06/18/18 16:31 06/18/18 16:35 DC 06/18/18 16:39 50 MG Famotidine (Pepcid 20mg Iv Push) 20 mg ONE STAT IV 06/18/18 16:31 06/18/18 16:35 DC 06/18/18 16:39 20 MG ECG Per My Interpretation Indication: other (allergic reaction) Rate (beats per minute): 62 Rhythm: normal sinus Findings: T-wave inversion (lead III), other (normal axis, normal intervals, no ST elevation) Comparison ECG Date: 03/04/2018 Change: new T wave inversion ED Course 1624: The patient was evaluated in room C6. A complete history and physical exam was performed. 1631: Ordered Famotidine 20 mg IV, Benadryl Inj 50 mg IV, Solu-Medrol IV 125 mg IV, and Sodium Chloride 1000 ml @ 999 mls/hr IV. 1749: The patient's symptoms are improving. 1826: I reevaluated the patient. Discussed results and discharge instructions: He verbalized understanding and agreement. The patient is ready for discharge. Medical Decision Differential diagnosis: Etiologies such as allergic reaction, anaphylaxis, urticaria, Hammonds-Shashi syndrome, toxic epidermal necrolysis, erythema multiforme, cellulitis, as well as others were entertained. Patient presents with onset today of swelling of his hands feet and face. Has a history of allergic reactions in the past and was admitted here overnight in February. Unknown source for this event. Has previously been following at the [facility] for further evaluation of this. Denies difficulty breathing or pain at this point of his chest or abdomen. Denies headache. Mild pruritic rash with swelling of his right middle finger right upper and left upper arm. Also states low pruritus of his legs. Denies any difficulty breathing or speaking. Denies throat or tongue irritation or swelling. States a little bit swelling at the corner of his right mouth but he does not notice it when looking at himself. Not an acute anaphylactic shock. Unsure of the exact etiology of this what appears to be an allergic reaction. Given steroids Pepcid antihistamines and fluids here. Monitor for several hours. Doubt ACS or pulmonary edema/CHF. No chest pain. No trauma history. Does not seem consistent with gout or infected joints. Laboratory studies are unremarkable. No hypotension and no evidence of anaphylaxis. Symptoms stabilized and began to improve. Discussed with patient who states that he has epinephrine pen at home. Feel that he is stable for discharge with a short course of steroids and antihistamines. Patient and agree with his plans. Advised follow-up with his outpatient doctors. Discussed return criteria. Medication Reconcilliation Current Medication List: was personally reviewed by me Blood Pressure Screening Patient's blood pressure: Normal blood pressure Impression Primary Impression: Allergic reaction Scribe Attestation The scribe's documentation has been prepared under my direction and personally reviewed by me in its entirety. I confirm that the note above accurately reflects all work, treatment, procedures, and medical decision making performed by me. Departure Information Dispostion Home / Self-Care Prescriptions Prednisone (Prednisone) 20 Mg Tab 2 TAB PO DAILY for 5 Days, #10 TAB 0 Refills Prov: Jamir Kay M.D. 06/18/18 Diphenhydramine Hcl (BENADRYL ALLERGY) 25 Mg Tab 1 TAB PO QID for 4 Days, #16 TABS 0 Refills Prov: Jamir Kay M.D. 06/18/18 Famotidine (Pepcid) 20 Mg Tab 20 MG PO BID for 5 Days, #10 TAB Prov: Jaimr Kay M.D. 06/18/18 Referrals Bob Fernandez D.O. (PCP) Forms HOME CARE DOCUMENTATION FORM, IMPORTANT VISIT INFORMATION, WORK / SCHOOL INSTRUCTIONS Patient Instructions My [facility] Additional Instructions Please utilize the prescribed 5 day course of steroids along with the Benadryl and Pepcid prescribed. Continue your Zyrtec. If you experience significant worsening of your symptoms please return here emergently for reevaluation and you may utilize your epinephrine pen. Continue to follow-up with your outpatient doctors regarding allergy testing and long-term treatment. Problem Qualifiers Primary Impression: Allergic reaction Encounter type: initial encounter Qualified Codes: T78.40XA - Allergy, unspecified, initial encounter
[2018-06-18 18:43] VITALS: BP 114/71; PULSE 70; O2SAT 98
== END 2018-06-18 18:44 | disposition home or self-care (01) ==
LOC: C.EDB 16:13 → C.EDC 18:44
DX: T78.40XA Allergy, unspecified, initial encounter (principal); X58.XXXA Exposure to other specified factors, initial encounter; Z79.899 Other long term (current) drug therapy; Z88.0 Allergy status to penicillin